=== PATIENT | female | born 1965 | race Caucasian/White ===

== ENCOUNTER 2023-01-03 06:01 | Inpatient (IN) | payer BC ==
[2023-01-03] MEDS ORDERED: Sodium Chloride 0.9% 10 ML Syringe FLUSH PRN ×2 (06:33→07:13)
[2023-01-03 06:51] LABS: HEMATOCRIT 42.3 % (34.2-48.2); MEAN CORPUSCULAR HEMOGLOBIN 30.6 pg (23.9-33.9); MEAN CORPUSCULAR HGB CONC 33.1 g/dL (31.9-34.8); MEAN CORPUSCULAR VOLUME 92.3 fL (76.7-100.5); RED BLOOD CELL COUNT 4.59 x10(6)uL (3.60-5.20); RED CELL DISTRIBUTION WIDTH 12.6 % (12.3-16.5); WHITE BLOOD CELL COUNT,WBC 11.2 x10-3/uL (3.0-10.3)
[2023-01-03 06:56] LABS: BLOOD UREA NITROGEN,BUN 19 mg/dL (7-18); BUN/CREATININE RATIO 15.8 (9-20); CALCIUM 9.9 mg/dL (8.6-10.2); CARBON DIOXIDE,CO2 27 mmol/L (21-32); CHLORIDE,CL 105 mmol/L (100-110); CREATININE 1.2 mg/dL (0.55-1.02); ESTIMATED GFR 53 mL/min (>60); GLUCOSE RANDOM 137 mg/dL (80-116); POTASSIUM,K 3.1 mmol/L (3.5-5.3); SODIUM,NA 145 mmol/L (135-145)
[2023-01-03 07:01] LABS: A/G RATIO 1.2; ALANINE AMINOTRANSFERASE,ALT 22 U/L (12-36); ALBUMIN 4.1 g/dL (3.5-5.2); ALKALINE PHOSPHATASE 79 IU/L (56-112); ASPARTATE AMNIOTRANSFERASE,AST 21 IU/L (5-25); BILIRUBIN TOTAL 0.4 mg/dL (0.1-1.3); PROTEIN TOTAL,TP 7.4 g/dL (6.0-8.0)
[2023-01-03] MEDS: Sodium Chloride 0.9% 1,000 ML IV SCH ×2 (07:03→11:39)
[2023-01-03] MEDS ORDERED: Sodium Chloride 0.9% 1,000 ML IV ONE (07:13)
[2023-01-03] MEDS ORDERED: Cefepime 2 GM in Sodium Chloride 0.9% 50 ML IV ONE (07:13)
[2023-01-03] MEDS ORDERED: Pantoprazole 40 MG Vial IVPUSH SCH (07:15)
[2023-01-03] MEDS ORDERED: Potassium Chloride 20 MEQ in Premix Bag 1 BAG IV ONE (07:25)
[2023-01-03] MEDS ORDERED: VANCOmycin 1.25 GM/250 ML 1.25 GM in Premix Bag 1 BAG IV SCH (07:30)
[2023-01-03] MEDS ORDERED: Cefepime 2 GM Vial IVPUSH ONE (07:48)
[2023-01-03 07:49] LABS: COLOR,URINE YELLOW (YELLOW)
[2023-01-03 07:50] LABS: APPEARANCE,URINE CLEAR (CLEAR); BACTERIA,URINE FEW (NS); BILIRUBIN,URINE NEGATIVE (NEGATIVE); GLUCOSE,URINE NORMAL (NORMAL); KETONES,URINE NEGATIVE (NEGATIVE); LEUKOCYTE ESTERASE,URINE NEGATIVE (NEGATIVE); NITRITE,URINE NEGATIVE (NEGATIVE); OCCULT BLOOD,URINE LARGE (NEGATIVE); PROTEIN,URINE NEGATIVE (NEGATIVE); RBC,URINE 40-50 (0-5); SQUAMOUS EPITHELIAL CELLS,UR RARE (NS,R,O); UROBILINOGEN,URINE NORMAL (NEGATIVE); WBC,URINE 0-5 (0-5)
[2023-01-03] MEDS ORDERED: Iopamidol 755 Mg/ML 100 ML Bottle IV ONE (08:47)
[2023-01-03] MEDS ORDERED: Cefepime 1 GM Vial IVPUSH SCH (10:15)
[2023-01-03] MEDS ORDERED: SUMAtriptan 50 MG Tab PO PRN (10:41)
[2023-01-03] MEDS: Tamsulosin 0.4 MG Cap.ER PO SCH (11:45)
[2023-01-03] MEDS: Enoxaparin 40 MG/0.4 ML Syringe SUBCUT SCH (11:45)
[2023-01-03] MEDS: buPROPion 150 MG Tab.ER PO SCH (11:45)
[2023-01-03] MEDS: atorvaSTATin 40 MG Tab PO SCH (20:23)
[2023-01-03] MEDS: DIPHENHYDRAMINE 50 MG PO PRN (20:23)
[2023-01-03] MEDS: Pantoprazole 40 MG Vial IVPUSH SCH (20:23)
[2023-01-03] MEDS: Cefepime 1 GM Vial IVPUSH SCH (20:52)
[2023-01-04] MEDS: Sodium Chloride 0.9% 1,000 ML IV SCH (03:30)
[2023-01-04] MEDS ORDERED: VANCOmycin 1.25 GM/250 ML 1.25 GM in Premix Bag 1 BAG IV SCH (06:00)
[2023-01-04 06:47] LABS: BASOPHILS PERCENT AUTO 0.5 % (0.2-1.5); EOSINOPHILS ABSOLUTE AUTO 0.2 x10-3/uL (0.0-0.8); EOSINOPHILS PERCENT AUTO 2.8 % (0.6-8.1); HEMATOCRIT 36.5 % (34.2-48.2); HEMOGLOBIN 12.2 g/dL (11.4-15.5); LYMPHOCYTES ABSOLUTE AUTO 2.7 x10-3/uL (1.0-4.4); LYMPHOCYTES PERCENT AUTO 45.7 % (18.4-52.1); MEAN CORPUSCULAR HEMOGLOBIN 31.2 pg (23.9-33.9); MEAN CORPUSCULAR HGB CONC 33.3 g/dL (31.9-34.8); MEAN CORPUSCULAR VOLUME 93.7 fL (76.7-100.5); MEAN PLATELET VOLUME 8.7 fL (7.1-12.4); MONOCYTES ABSOLUTE AUTO 0.5 x10-3/uL (0.3-1.0); NEUTROPHILS ABSOLUTE AUTO 2.5 x10-3/uL (1.5-6.3); PLATELET COUNT,PLT 201 x10(3)uL (151-488); RED BLOOD CELL COUNT 3.89 x10(6)uL (3.60-5.20); RED CELL DISTRIBUTION WIDTH 12.7 % (12.3-16.5); WHITE BLOOD CELL COUNT,WBC 5.8 x10-3/uL (3.0-10.3)
[2023-01-04 06:48] LABS: BLOOD UREA NITROGEN,BUN 6 mg/dL (7-18); BUN/CREATININE RATIO 6.7 (9-20); CALCIUM 8.1 mg/dL (8.6-10.2); CARBON DIOXIDE,CO2 27 mmol/L (21-32); CHLORIDE,CL 111 mmol/L (100-110); CREATININE 0.9 mg/dL (0.55-1.02); ESTIMATED GFR 75 mL/min (>60); GLUCOSE RANDOM 91 mg/dL (80-116); MAGNESIUM 1.6 mg/dL (1.8-2.5); POTASSIUM,K 3.2 mmol/L (3.5-5.3); SODIUM,NA 145 mmol/L (135-145)
[2023-01-04] MEDS: buPROPion 150 MG Tab.ER PO SCH (08:50)
[2023-01-04] MEDS: Tamsulosin 0.4 MG Cap.ER PO SCH (08:50)
[2023-01-04] MEDS: Pantoprazole 40 MG Vial IVPUSH SCH ×2 (08:51→21:04)
[2023-01-04] MEDS: Cefepime 1 GM Vial IVPUSH SCH (08:51)
[2023-01-04] MEDS ORDERED: Magnesium Sulfate/Water 2 GM in Premix Bag 1 BAG IV ONE ×2 (09:52→10:25)
[2023-01-04] MEDS ORDERED: Potassium Chloride 20 MEQ Tab.ER PO ONE (09:52)
[2023-01-04] MEDS: Enoxaparin 40 MG/0.4 ML Syringe SUBCUT SCH (10:25)
[2023-01-04] MEDS: Amoxicillin/Clavulanate K 875-125 MG Tab PO SCH ×2 (10:25→21:03)
[2023-01-04] MEDS: atorvaSTATin 40 MG Tab PO SCH (21:03)
[2023-01-04] MEDS: DIPHENHYDRAMINE 50 MG PO PRN (21:04)
[2023-01-05 06:39] LABS: BASOPHILS PERCENT AUTO 0.7 % (0.2-1.5); EOSINOPHILS ABSOLUTE AUTO 0.2 x10-3/uL (0.0-0.8); EOSINOPHILS PERCENT AUTO 3.5 % (0.6-8.1); HEMATOCRIT 37.7 % (34.2-48.2); HEMOGLOBIN 12.4 g/dL (11.4-15.5); LYMPHOCYTES ABSOLUTE AUTO 2.2 x10-3/uL (1.0-4.4); LYMPHOCYTES PERCENT AUTO 41.4 % (18.4-52.1); MEAN CORPUSCULAR HEMOGLOBIN 30.8 pg (23.9-33.9); MEAN CORPUSCULAR VOLUME 93.5 fL (76.7-100.5); MEAN PLATELET VOLUME 8.7 fL (7.1-12.4); MONOCYTES ABSOLUTE AUTO 0.5 x10-3/uL (0.3-1.0); MONOCYTES PERCENT AUTO 10.4 % (4.4-15.7); NEUTROPHILS ABSOLUTE AUTO 2.3 x10-3/uL (1.5-6.3); PLATELET COUNT,PLT 198 x10(3)uL (151-488); RED BLOOD CELL COUNT 4.03 x10(6)uL (3.60-5.20); RED CELL DISTRIBUTION WIDTH 12.6 % (12.3-16.5); WHITE BLOOD CELL COUNT,WBC 5.2 x10-3/uL (3.0-10.3)
[2023-01-05 06:56] LABS: BLOOD UREA NITROGEN,BUN 6 mg/dL (7-18); BUN/CREATININE RATIO 7.5 (9-20); CALCIUM 8.3 mg/dL (8.6-10.2); CARBON DIOXIDE,CO2 28 mmol/L (21-32); CHLORIDE,CL 109 mmol/L (100-110); CREATININE 0.8 mg/dL (0.55-1.02); ESTIMATED GFR 86 mL/min (>60); GLUCOSE RANDOM 93 mg/dL (80-116); POTASSIUM,K 3.3 mmol/L (3.5-5.3); SODIUM,NA 144 mmol/L (135-145)
[2023-01-05] MEDS: Tamsulosin 0.4 MG Cap.ER PO SCH (08:42)
[2023-01-05] MEDS: Amoxicillin/Clavulanate K 875-125 MG Tab PO SCH ×2 (08:42→09:38)
[2023-01-05] MEDS: buPROPion 150 MG Tab.ER PO SCH (08:42)
[2023-01-05] MEDS ORDERED: Potassium Chloride 20 MEQ Tab.ER PO ONE (09:13)
[2023-01-05 10:50] VITALS: BP 109/63; PULSE 72
== END 2023-01-05 09:45 | disposition home or self-care (01) | DRG 720 ==
LOC: FB.ED 06:01 → FB.MS 10:26
PROVIDERS: ADMIT Family Medicine; ATTEND Student in an Organized Health Care Education/Training Program
DX: A41.9 Sepsis, unspecified organism (principal); K21.9 Gastro-esophageal reflux disease without esophagitis; N20.1 Calculus of ureter; E87.6 Hypokalemia; I25.10 Atherosclerotic heart disease of native coronary artery without angina pectoris; E83.42 Hypomagnesemia; R31.9 Hematuria, unspecified; N20.0 Calculus of kidney; E78.00 Pure hypercholesterolemia, unspecified; F41.9 Anxiety disorder, unspecified; F32.A Depression, unspecified; Z98.890 Other specified postprocedural states; Z79.899 Other long term (current) drug therapy; Z90.49 Acquired absence of other specified parts of digestive tract; Z90.89 Acquired absence of other organs; I25.2 Old myocardial infarction
CPT/HCPCS: 36415; 71046; 74178; 80048; 80053; 80202; 81001; 83605; 83690; 83735; 85025; 85027; 86140; 87040; 87086; 96365; 96366; 96368; 96375; 99222; 99232; 99238; 99285; 99285-25; A9270-GY; C9113; J0692; J1650; J3370; J3475; J3480; J3490; J7030; Q9967